=== PATIENT | female | born 1970 | race Caucasian/White ===

== ENCOUNTER 2017-02-18 06:11 | Day surgery (SDC) | payer OTHER ==
[2017-02-16 15:38] LABS: BASOPHILS # (AUTO) 0.1 K/uL (0.00-0.22); BASOPHILS % (AUTO) 1.9 % (0.0-2.0); EOSINOPHILS # (AUTO) 0.2 K/uL (0-0.4); EOSINOPHILS % (AUTO) 2.2 % (0.0-4.0); HEMOGLOBIN 11.5 g/dL (12.0-16.0); LYMPHOCYTES # (AUTO) 2.5 K/uL (2.5-16.5); MEAN CORPUSCULAR HEMOGLOBIN 20 pg (27-31); MEAN CORPUSCULAR HGB CONC 31 g/dL (33-37); MEAN CORPUSCULAR VOLUME 65 fL (80-94); MONOCYTES # (AUTO) 0.3 K/uL (0.8-1.0); MONOCYTES % (AUTO) 4.8 % (1.7-9.3); NEUTROPHILS # (AUTO) 3.8 K/uL (1.8-7.7); NEUTROPHILS % (AUTO) 54.1 % (42.2-75.2); PLATELET COUNT (AUTO) 334 K/uL (140-450); RED BLOOD CELL COUNT(AUTO) 5.69 MIL/uL (4.20-5.40); RED CELL DISTRIBUTION WIDTH 16.8 % (11.6-13.7); WHITE BLOOD COUNT (AUTO) 6.9 K/uL (4.8-10.8)
[~2017-02-18] VITALS: Ht 154.9 cm; Wt 62.6 kg
[2017-02-18] MEDS ORDERED: ACETAMINOPHEN/CODEINE 300/30MG 1 TAB PO PRN (07:00)
[2017-02-18] MEDS ORDERED: MORPHINE SULFATE 4 MG/ML SYR IM/IVP PRN (07:00)
[2017-02-18] MEDS ORDERED: IBUPROFEN 800 MG TAB PO PRN (07:00)
[2017-02-18] MEDS ORDERED: ONDANSETRON 4 MG/2 ML VIAL IVP PRN ×2 (07:00→09:10)
[2017-02-18] MEDS ORDERED: SEVOFLURANE 250 ML BTL INH ONE (08:43)
[2017-02-18] MEDS ORDERED: LABETALOL 100 MG/20 ML VIAL ONE (08:43)
[2017-02-18] MEDS ORDERED: PROPOFOL 200 MG/20 ML VIAL IV ONE (08:43)
[2017-02-18] MEDS ORDERED: MIDAZOLAM 2 MG/2 ML VIAL ONE (08:56)
[2017-02-18] MEDS ORDERED: CITRIC ACID/SODIUM CITRATE 30 ML UDC PO SCH (08:57)
[2017-02-18] MEDS ORDERED: HYDROmorphone 1 MG/ML AMP IVP PRN (09:10)
[2017-02-18] MEDS ORDERED: METF1000 PO (11:26)
[2017-02-18] MEDS ORDERED: INSU100S22 SUBQ (11:26)
[2017-02-18] MEDS ORDERED: ATI.5 PO (11:26)
[2017-02-18] MEDS ORDERED: RANI150T8 PO (11:26)
[2017-02-18] MEDS ORDERED: OMEP20TC10 PO (11:26)
[2017-02-18] MEDS ORDERED: GLIP10TA12 PO (11:26)
[2017-02-18] MEDS ORDERED: ALBU0.0946 IH (11:26)
[2017-02-18] MEDS ORDERED: ASPI81EC97 PO (11:26)
[2017-02-18] MEDS ORDERED: ACET-2869 PO (11:26)
[2017-02-18] MEDS ORDERED: LID5T TP (11:26)
[2017-02-18] MEDS ORDERED: IMI50 PO (11:26)
[2017-02-18] MEDS ORDERED: GABA300C PO (11:26)
[2017-02-18] MEDS ORDERED: PRED20TA5 PO (11:26)
[2017-02-18] MEDS ORDERED: MEMA5TAB PO (11:26)
[2017-02-18] MEDS ORDERED: LOVA40TA4 PO (11:26)
== END 2017-02-18 11:45 | disposition home or self-care (01) ==
LOC: MDS 06:11 → MMU 06:12 → MDS 11:45
PROVIDERS: ATTEND Obstetrics & Gynecology
DX: N92.1 Excessive and frequent menstruation with irregular cycle (principal); I10 Essential (primary) hypertension; E78.5 Hyperlipidemia, unspecified; I20.9 Angina pectoris, unspecified; J44.9 Chronic obstructive pulmonary disease, unspecified; I63.9 Cerebral infarction, unspecified; G43.909 Migraine, unspecified, not intractable, without status migrainosus; G40.909 Epilepsy, unspecified, not intractable, without status epilepticus; G45.9 Transient cerebral ischemic attack, unspecified; F41.8 Other specified anxiety disorders; E11.9 Type 2 diabetes mellitus without complications; D64.9 Anemia, unspecified; K21.9 Gastro-esophageal reflux disease without esophagitis; F03.90 Unspecified dementia, unspecified severity, without behavioral disturbance, psychotic disturbance, mood disturbance, and anxiety; F17.210 Nicotine dependence, cigarettes, uncomplicated; Z88.0 Allergy status to penicillin; Z90.49 Acquired absence of other specified parts of digestive tract; Z98.890 Other specified postprocedural states
CPT/HCPCS: 36415; 58120; 82948; 85025; J2250; J2704; J3490; J7030; J7120

== ENCOUNTER 2017-04-26 07:35 | Emergency (ER) | payer OTHER ==
[~2017-04-26] VITALS: Ht 157.5 cm; Wt 60.1 kg
[~2017-04-26 07:35] MED LIST: ACET-2869 PO; ALBU0.0946 IH; ASPI81EC97 PO; ATI.5 PO; GABA300C PO; GLIP10TA12 PO; IMI50 PO; INSU100S22 SUBQ; LID5T TP; LOVA40TA4 PO; MEMA5TAB PO; METF1000 PO; OMEP20TC10 PO; PRED20TA5 PO; RANI150T8 PO
[2017-04-26 07:41] VITALS: BP 137/78
[2017-04-26 08:08] VITALS: BP 125/72
== END 2017-04-26 08:08 | disposition home or self-care (01) ==
LOC: MED 07:35
DX: T81.4XXA Infection following a procedure, initial encounter (principal); Z88.0 Allergy status to penicillin; J45.909 Unspecified asthma, uncomplicated; E11.9 Type 2 diabetes mellitus without complications; I10 Essential (primary) hypertension; Z90.49 Acquired absence of other specified parts of digestive tract; Z90.710 Acquired absence of both cervix and uterus; Z90.89 Acquired absence of other organs
CPT/HCPCS: 99283